=== PATIENT | male | born 1970 | race Caucasian/White ===

== ENCOUNTER 2021-03-21 12:25 | Emergency (ER) | payer OTHER ==
[2021-03-21] MEDS ORDERED: Sodium Chloride 0.9% 10 ML Syringe FLUSH PRN (12:36)
[2021-03-21] MEDS ORDERED: Nitroglycerin 2% Oint 1 GM UD Packet TOP ONE (12:36)
[2021-03-21] MEDS ORDERED: Aspirin 81 MG Tab.Chew PO ONE (12:36)
[2021-03-21] MEDS ORDERED: Sodium Chloride 0.9% 1,000 ML IV ONE (12:36)
--- NOTE | 2021-03-21 12:53 | EDM.PDOC ---
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 Had breakfast, went to work and was teaching when he suddenly had onset of substernal chest pressure 5/10. not sweaty or nauseated with it. No history of CVD, on propanolol for hand tremors. Became concerned and came to the ED. onset of pain 11:20. History of covid in Jun and vaccines in October. No known sick contacts but school is in session. pain at arrival is 2/10 Onset: Today, Sudden Duration: Hour(s):, Improving Location: Reports: Chest Quality: Reports: Ache Severity: Mild Improves with: Reports: None Worsens with: Reports: None Associated Symptoms: Reports: No Other Symptoms - Related Data Allergies Allergy/AdvReac Type Severity Reaction Status Date / Time No Known Allergies Allergy Verified 03/21/21 12:26 Home Meds: Home Meds Propranolol HCl [Inderal Xl] 1 cap PO DAILY 03/21/21 [History] Sertraline HCl [Zoloft] 1.5 tab PO DAILY 03/21/21 [History] Past Medical History Neurological History: Reports: Other (See Below) (hand tremors) Immunologic History: Reports: Other (See Below) (covid 19 in June 2020, vaccine October 2020) Social & Family History - Tobacco Use Tobacco Use Status *Q: Never Tobacco User - Recreational Drug Use Recreational Drug Use: No Drug Use in Last 12 Months: No - Living Situation & Occupation Living situation: Reports: ED ROS GENERAL - Review of Systems Review Of Systems: See Below Constitutional: Reports: No Symptoms. Denies: Fever, Chills, Malaise HEENT: Reports: No Symptoms. Denies: Rhinitis, Sinus Problem, Throat Pain Respiratory: Reports: No Symptoms. Denies: Shortness of Breath, Sputum Cardiovascular: Reports: Chest Pain. Denies: Dyspnea on Exertion, Edema, Lightheadedness, Palpitations Endocrine: Reports: No Symptoms GI/Abdominal: Reports: No Symptoms. Denies: Diarrhea, Nausea, Vomiting : Reports: No Symptoms Musculoskeletal: Reports: No Symptoms. Denies: Neck Pain, Shoulder Pain, Leg Pain, Joint Pain Skin: Reports: No Symptoms Neurological: Reports: No Symptoms. Denies: Confusion, Dizziness, Headache Psychiatric: Reports: No Symptoms. Denies: Agitation, Anxiety Hematologic/Lymphatic: Reports: No Symptoms ED EXAM, GENERAL - Physical Exam Exam: See Below Exam Limited By: No Limitations General Appearance: Alert, WD/WN, No Apparent Distress Eye Exam: Bilateral Eye: EOMI, Normal Inspection, PERRL Ears: Normal External Exam, Normal Canal, Normal TMs Nose: Normal Inspection, Normal Mucosa, No Blood Throat/Mouth: Normal Inspection, Normal Lips, Normal Teeth, Normal Voice Head: Atraumatic Neck: Normal Inspection, Supple, Non-Tender, Full Range of Motion Respiratory/Chest: No Respiratory Distress, Lungs Clear, Normal Breath Sounds, No Accessory Muscle Use, Chest Non-Tender Cardiovascular: Normal Peripheral Pulses, Regular Rate, Rhythm, No Edema, No Murmur GI/Abdominal: Normal Bowel Sounds, Soft, Non-Tender, Other (obese) Extremities: Normal Inspection, Normal Range of Motion, Non-Tender, No Pedal Edema, Normal Capillary Refill Neurological: Alert, Oriented, CN II-XII Intact, Normal Cognition, No Motor/Sensory Deficits Psychiatric: Normal Affect, Normal Mood #1 Interpretation EKG Date: 03/21/21 Time: 12:30 Rhythm: NSR Rate (Beats/Min): 61 [place]: Normal P-Wave: Present QRS: Normal ST-T: Normal QT: Normal Comparison: NA - No Prior EKG Course - Orders/Labs/Meds Orders: Active Orders 24 hr Category Date Time Status Peripheral IV Care [RC] . DIRECTED Care 03/21/21 12:36 Active Chest 2V [CR] Stat Exams 03/21/21 12:33 Taken Sodium Chloride 0.9% [Saline Flush] Med 03/21/21 12:36 Active 10 ml FLUSH ASDIRECTED PRN Peripheral IV Insertion Adult [OM.PC] Routine Oth 03/21/21 12:36 Ordered Medication Orders Sodium Chloride (Sodium Chloride 0.9% 10 Ml Syringe) 10 ml FLUSH ASDIRECTED PRN PRN Reason: Keep Vein Open Labs: Laboratory Tests 03/21/21 03/21/21 03/21/21 Range/Units 12:30 12:30 12:35 WBC 9.0 (4.0-10.2) K/uL RBC 5.54 H (4.33-5.41) M/uL Hgb 16.1 (13.1-16.8) g/dL Hct 48.6 (39.0-49.0) % MCV 87.7 (84.0-98.0) fL MCH 29.1 (28.2-33.3) pg MCHC 33.1 (31.7-36.0) g/dL RDW 13.4 (11.2-14.1) % Plt Count 282 (150-350) K/uL Neut % (Auto) 74.3 (45.0-80.0) % Lymph % (Auto) 16.6 (10.0-50.0) % [place] % (Auto) 7.5 (2.0-14.0) % Eos % (Auto) 1.2 (0.0-5.0) % Baso % (Auto) 0.4 (0.0-2.0) % Neut # (Auto) 6.71 (1.40-7.00) K/uL Lymph # (Auto) 1.50 (0.50-3.50) K/uL [place] # (Auto) 0.68 (0.00-1.00) K/uL Eos # (Auto) 0.11 (0.00-0.50) K/uL Baso # (Auto) 0.04 (0.00-0.20) K/uL D-Dimer, Quantitative < 100 (0-400) ng/mL Sodium 141 (136-145) mmol/L Potassium 4.3 (3.5-5.1) mmol/L Chloride 106 (98-107) mmol/L Carbon Dioxide 28.0 (21.0-32.0) mmol/L Anion Gap 7.0 (7-15) meq/L BUN 22 H (7-18) mg/dL Creatinine 1.13 (0.51-1.17) mg/dL Est Cr Clr Drug Dosing TNP Estimated GFR (MDRD) > 60 mL/min Glucose 112 H (70-99) mg/dL Calcium 8.7 (8.5-10.1) mg/dL Total Bilirubin 0.4 (0.2-1.0) mg/dL AST 10 L (15-37) U/L ALT 27 (12-78) U/L Alkaline Phosphatase 94 (46-116) IU/L Troponin I High Sens 4 (<=76) ng/L Total Protein 6.9 (6.4-8.2) g/dL Albumin 3.6 (3.4-5.0) g/dL SARS-CoV-2 RNA (ERLINDA) (NEGATIVE) 03/21/21 03/21/21 Range/Units 13:00 15:10 WBC (4.0-10.2) K/uL RBC (4.33-5.41) M/uL Hgb (13.1-16.8) g/dL Hct (39.0-49.0) % MCV (84.0-98.0) fL MCH (28.2-33.3) pg MCHC (31.7-36.0) g/dL RDW (11.2-14.1) % Plt Count (150-350) K/uL Neut % (Auto) (45.0-80.0) % Lymph % (Auto) (10.0-50.0) % [place] % (Auto) (2.0-14.0) % Eos % (Auto) (0.0-5.0) % Baso % (Auto) (0.0-2.0) % Neut # (Auto) (1.40-7.00) K/uL Lymph # (Auto) (0.50-3.50) K/uL [place] # (Auto) (0.00-1.00) K/uL Eos # (Auto) (0.00-0.50) K/uL Baso # (Auto) (0.00-0.20) K/uL D-Dimer, Quantitative (0-400) ng/mL Sodium (136-145) mmol/L Potassium (3.5-5.1) mmol/L Chloride (98-107) mmol/L Carbon Dioxide (21.0-32.0) mmol/L Anion Gap (7-15) meq/L BUN (7-18) mg/dL Creatinine (0.51-1.17) mg/dL Est Cr Clr Drug Dosing Estimated GFR (MDRD) mL/min Glucose (70-99) mg/dL Calcium (8.5-10.1) mg/dL Total Bilirubin (0.2-1.0) mg/dL AST (15-37) U/L ALT (12-78) U/L Alkaline Phosphatase (46-116) IU/L Troponin I High Sens 4 (<=76) ng/L Total Protein (6.4-8.2) g/dL Albumin (3.4-5.0) g/dL SARS-CoV-2 RNA (ERLINDA) Negative (NEGATIVE) Meds: Medications Generic Name Dose Route Start Last Admin Trade Name Freq PRN Reason Stop Dose Admin Sodium Chloride 10 ml 03/21/21 12:36 Sodium Chloride 0.9% 10 Ml Syringe FLUSH ASDIRECTED PRN Keep Vein Open Discontinued Medications Generic Name Dose Route Start Last Admin Trade Name Freq PRN Reason Stop Dose Admin Aspirin 324 mg 03/21/21 12:36 03/21/21 12:41 Aspirin 81 Mg Tab.Chew PO 03/21/21 12:37 324 mg ONETIME ONE Administration Sodium Chloride 1,000 mls @ 999 mls/hr 03/21/21 12:36 03/21/21 12:42 Normal Saline IV 03/21/21 13:36 999 mls/hr .BOLUS ONE Administration Nitroglycerin 1 gm 03/21/21 12:36 03/21/21 12:42 Nitroglycerin 2% Oint 1 Gm Ud Packet TOP 03/21/21 12:37 1 gm ONETIME ONE Administration - Radiology Interpretation Free Text/Narrative:: chest x-ray no acute. preliminary read - Re-Assessments/Exams Free Text/Narrative Re-Assessment/Exam: 03/21/21 12:55 pain is improved at arrival IV fluidsm, phototypesetting equipment monitor. EKG, labs, chest x- ray. will give 324 mg aspirin and 1 gram nitro paste on the chest. pain is /03/21/21 13:28 testing thus far is negative. Will repeat the troponin. Awaiting the covid. nitro paste did not really change anything. 03/21/21 15:24 testing was negative. Discussed exercise, follow up with cardiac stress testing. Departure - Departure Time of Disposition: 15:41 Disposition: Home, Self-Care 01 Condition: Good Clinical Impression: Chest pain Instructions: Nonspecific Chest Pain, Adult, [id number], Cardiopulmonary Exercise Stress Test, [id number] Referrals: Elen Giron NP [Primary Care Provider] - Forms: ED Department Discharge, ED Return to Work/School Form Additional Instructions: TEsting today did not reveal an acute coronary problem, infection or blood clot. You are advised to follow up with your PCP and consider stress testing. - My Orders Last 24 Hours: My Active Orders 03/21/21 12:33 Chest 2V [CR] Stat 03/21/21 12:36 Peripheral IV Care [RC] . DIRECTED Sodium Chloride 0.9% [Saline Flush] 10 ml FLUSH ASDIRECTED PRN Peripheral IV Insertion Adult [OM.PC] Routine - Assessment/Plan Last 24 Hours: My Active Orders 03/21/21 12:33 Chest 2V [CR] Stat 03/21/21 12:36 Peripheral IV Care [RC] . DIRECTED Sodium Chloride 0.9% [Saline Flush] 10 ml FLUSH ASDIRECTED PRN Peripheral IV Insertion Adult [OM.PC] Routine
[2021-03-21 13:04] LABS: CHLORIDE,CL 106 mmol/L (98-107); SODIUM,NA 141 mmol/L (136-145)
== END 2021-03-21 15:58 | disposition home or self-care (01) ==
LOC: LL.ED 12:25
DX: R07.2 Precordial pain (principal); Z20.822 Contact with and (suspected) exposure to COVID-19
CPT/HCPCS: 36415; 71046; 80053; 84484; 85025; 85379; 87635; 93005; 99285; A9270; J7030; 93010; 99284; U0002

== ENCOUNTER 2021-05-30 20:15 | Emergency (ER) | payer OTHER ==
[2021-05-30] MEDS ORDERED: methylPREDNISolone Sodium Succinate 125 MG/2 ML SDV ONE (20:17)
[2021-05-30] MEDS ORDERED: diphenhydrAMINE 50 MG/ML SDV ONE (20:17)
[2021-05-30] MEDS ORDERED: Sodium Chloride 0.9% 10 ML Syringe FLUSH PRN (20:26)
--- NOTE | 2021-05-30 21:20 | EDM.PDOC ---
ED HPI GENERAL MEDICAL PROBLEM - General Chief Complaint: Allergic Reaction Stated Complaint: LIP AND EYE SWELLING Time Seen by Provider: 05/30/21 20:28 Source of Information: Reports: Patient History Limitations: Reports: No Limitations - History of Present Illness INITIAL COMMENTS - FREE TEXT/NARRATIVE: patient reports lips feeling funny after he ate a home made smoothie late this afternoon. No new ingredients per patient. He does recall in past that sometimes lips tingle after certain foods. This time he noted upper lip gradually swelling/right eye area puffiness over following hours. No change with Benadryl 50mg. Denies respiratory changes/airway or tongue swelling/hives/other changes. - Related Data Allergies Allergy/AdvReac Type Severity Reaction Status Date / Time No Known Allergies Allergy Verified 03/21/21 12:26 Home Meds: Home Meds Propranolol HCl [Inderal Xl] 1 cap PO DAILY 03/21/21 [History] Sertraline HCl [Zoloft] 2 tab PO DAILY 03/21/21 [History] Cholecalciferol (Vitamin D3) [Vitamin D3] 1 tab PO DAILY 05/30/21 [History] Famotidine [Pepcid] 1 tab PO BID 05/30/21 [History] [place]-3 Fatty Acids/Fish Oil [Fish Oil 1,000 mg Capsule] 1 cap PO DAILY 05/30/21 [History] Sildenafil Citrate [Viagra] 50 tab PO DAILY PRN 05/30/21 [History] Past Medical History Neurological History: Reports: Other (See Below) (hand tremors) Psychiatric History: Reports: Anxiety, Depression Immunologic History: Reports: Other (See Below) (covid 19 in June 2020, vaccine October 2020) Dermatologic History: Reports: Other (See Below) (lip swelling triggered by unknown food(s)) Social & Family History - Caffeine Use Caffeine Use: Reports: Soda - Living Situation & Occupation Living situation: Reports: ED ROS ALLERGIC REACTION - Review of Systems Review Of Systems: Comprehensive ROS is negative, except as noted in HPI. ED EXAM GENERAL NO PERIP PULSE - Physical Exam Exam: See Below Exam Limited By: No Limitations General Appearance: Alert, No Apparent Distress, Obese Eye Exam: Bilateral Eye: EOMI, PERRL, Other (no obvious puffiness of eyelids but patient reports he feels that they are puffier than usual) Ears: Normal External Exam, Normal Canal, Hearing Grossly Normal Nose: Normal Inspection, Normal Mucosa, No Blood Throat/Mouth: Normal Oropharynx, Normal Voice, No Airway Compromise, Other (mild-moderate swelling of upper lip) Head: Atraumatic Neck: Normal Inspection, Supple, Non-Tender, Full Range of Motion Respiratory/Chest: No Respiratory Distress, Lungs Clear, Normal Breath Sounds, No Accessory Muscle Use Cardiovascular: Regular Rate, Rhythm GI/Abdominal: Soft, Non-Tender (Male) Exam: Deferred Rectal (Males) Exam: Deferred Back Exam: No: Muscle Spasm Extremities: Normal Inspection, Normal Range of Motion, No Pedal Edema, Normal Capillary Refill Neurological: Alert, Oriented, Normal Cognition, Normal Gait, No Motor/Sensory Deficits Psychiatric: Normal Affect, Normal Mood Skin Exam: Warm, Intact, Normal Color, No Rash Course - Orders/Labs/Meds Orders: Active Orders 24 hr Category Date Time Status Peripheral IV Care [RC] . DIRECTED Care 05/30/21 20:26 Active Sodium Chloride 0.9% [Saline Flush] Med 05/30/21 20:26 Active 10 ml FLUSH ASDIRECTED PRN Peripheral IV Insertion Adult [OM.PC] Routine Oth 05/30/21 20:26 Ordered Medication Orders Sodium Chloride (Sodium Chloride 0.9% 10 Ml Syringe) 10 ml FLUSH ASDIRECTED PRN PRN Reason: Keep Vein Open Last Admin: 05/30/21 20:28 Dose: 10 ml Documented by: KATE Meds: Medications Generic Name Dose Route Start Last Admin Trade Name Freq PRN Reason Stop Dose Admin Sodium Chloride 10 ml 05/30/21 20:26 05/30/21 20:28 Sodium Chloride 0.9% 10 Ml Syringe FLUSH 10 ml ASDIRECTED PRN Administration Keep Vein Open Discontinued Medications Generic Name Dose Route Start Last Admin Trade Name Freq PRN Reason Stop Dose Admin Diphenhydramine HCl Confirm 05/30/21 20:17 05/30/21 20:20 Diphenhydramine 50 Mg/Ml Sdv Administered 05/30/21 20:18 50 mg Dose Administration 50 mg .ROUTE .STK-MED ONE Methylprednisolone Sodium Succinate Confirm 05/30/21 20:17 05/30/21 20:19 Methylprednisolone Sodium Succinate 125 Mg/2 Ml Sdv Administered 05/30/21 20:18 125 mg Dose Administration 125 mg .ROUTE .STK-MED ONE - Re-Assessments/Exams Free Text/Narrative Re-Assessment/Exam: 05/30/21 21:19 Vital signs stable. No respiratory distress or signs of anaphylaxis. IV access obtained and patient received Benadryl and Solu-Medrol. Observed for one hour. 05/30/21 21:29 Patient feeling better. Lip much improved. No obvious eyelid edema. OK to be discharged home. Precautions reviewed. To return to ER if any worsening symptoms develop. Recommend working with primary provider to help ID what food might have triggered the reaction. Departure - Departure Time of Disposition: 21:25 Disposition: Home, Self-Care 01 Condition: Good Clinical Impression: Allergic reaction to food Qualifiers: Encounter type: initial encounter Qualified Code(s): T78.1XXA - Other adverse food reactions, not elsewhere classified, initial encounter - Discharge Information *PRESCRIPTION DRUG MONITORING PROGRAM REVIEWED*: Not Applicable *COPY OF PRESCRIPTION DRUG MONITORING REPORT IN PATIENT JUANA: Not Applicable Instructions: Angioedema Referrals: Elen Giron NP [Primary Care Provider] - Forms: ED Department Discharge Additional Instructions: OK to take Benadryl 1-2 tabs every 6 hours as needed for continued swelling/symptoms. Return to ER if if you have sudden worsening problems, especially airway changes/swelling of throat and tongue. You will need to do some careful sleuthing as to identifying the culprit that set off the swelling. Remember, if you develop a worse reaction such as described above (anaphylaxis) you will need to carry an Epi-Pen - My Orders Last 24 Hours: My Active Orders 05/30/21 20:26 Peripheral IV Care [RC] . DIRECTED Sodium Chloride 0.9% [Saline Flush] 10 ml FLUSH ASDIRECTED PRN Peripheral IV Insertion Adult [OM.PC] Routine - Assessment/Plan Last 24 Hours: My Active Orders 05/30/21 20:26 Peripheral IV Care [RC] . DIRECTED Sodium Chloride 0.9% [Saline Flush] 10 ml FLUSH ASDIRECTED PRN Peripheral IV Insertion Adult [OM.PC] Routine
== END 2021-05-30 21:37 | disposition home or self-care (01) ==
LOC: LL.ED 20:15
DX: T78.1XXA Other adverse food reactions, not elsewhere classified, initial encounter (principal)
CPT/HCPCS: 96374; 96375; 99283; 99283-25; J1200; J2930

== ENCOUNTER 2022-02-10 17:03 | Emergency (ER) | payer OTHER ==
[2022-02-10] MEDS ORDERED: Bacitracin/Neomycin/Polymyxin B Oint 0.9 GM U/D Packet TOP ONE (17:28)
[2022-02-10] MEDS ORDERED: Diphtheria,Pertussis(Acell),Tetanus Vaccine 0.5 ML Syringe IM ONE (17:55)
== END 2022-02-10 18:11 | disposition home or self-care (01) ==
LOC: LL.ED 17:03
DX: S60.221A Contusion of right hand, initial encounter (principal); S00.81XA Abrasion of other part of head, initial encounter; S80.211A Abrasion, right knee, initial encounter; I10 Essential (primary) hypertension; K21.9 Gastro-esophageal reflux disease without esophagitis; Z23 Encounter for immunization; Z86.16 Personal history of COVID-19; W18.40XA Slipping, tripping and stumbling without falling, unspecified, initial encounter; Y92.480 Sidewalk as the place of occurrence of the external cause
CPT/HCPCS: 73130-RT; 90471; 90715; 99283; 99283-25

== ENCOUNTER 2022-03-02 16:11 | Emergency (ER) | payer OTHER ==
[2022-03-02 17:07] LABS: ANION GAP 8.6 meq/L (7-15); CHLORIDE,CL 107 mmol/L (98-107); ESTIMATED GFR 95 mL/min (>=60); SODIUM,NA 140 mmol/L (136-145)
[2022-03-02 18:37] LABS: CORONAVIRUS COVID-19 NAA NEGATIVE (NEGATIVE); RESPIRATORY SYNCYTIAL VIR NAA NEGATIVE (NEGATIVE)
[2022-03-02] MEDS ORDERED: Iopamidol 612 MG/ML 100 ML Bottle IVPUSH ONE (19:32)
[2022-03-02] MEDS ORDERED: Sodium Chloride 0.9% 1,000 ML IV ONE ×2 (21:02→22:18)
[2022-03-02] MEDS ORDERED: Loperamide 2 MG Tab PO ONE (21:58)
[2022-03-02] MEDS ORDERED: Ketorolac 30 MG/ML SDV IVPUSH ONE (22:33)
== END 2022-03-02 23:48 | disposition home or self-care (01) ==
LOC: LL.ED 16:11
DX: K52.9 Noninfective gastroenteritis and colitis, unspecified (principal); E86.0 Dehydration; I10 Essential (primary) hypertension; K21.9 Gastro-esophageal reflux disease without esophagitis; E66.9 Obesity, unspecified; Z68.30 Body mass index [BMI] 30.0-30.9, adult; Z86.16 Personal history of COVID-19; Z20.822 Contact with and (suspected) exposure to COVID-19
CPT/HCPCS: 0241U; 36415; 74019; 74177; 80053; 81001; 83605; 83735; 85025; 96361; 96374; 99284; 99284-25; A9270-GY; J1885; J7030; Q9967

== ENCOUNTER 2022-09-03 20:46 | Emergency (ER) | payer OTHER ==
[2022-09-03] MEDS ORDERED: fentaNYL 50 MCG/ML SDV IVPUSH ONE ×2 (21:08→23:03)
[2022-09-03] MEDS ORDERED: Sodium Chloride 0.9% 1,000 ML IV ONE (21:09)
[2022-09-03] MEDS ORDERED: Ondansetron 4 MG/2 ML SDV IVPUSH PRN (21:09)
[2022-09-03] MEDS ORDERED: Sodium Chloride 0.9% 10 ML Syringe FLUSH PRN (21:09)
[2022-09-03 21:34] LABS: ANION GAP 16.6 meq/L (7-15)
[2022-09-03] MEDS ORDERED: Iopamidol 612 MG/ML 100 ML Bottle IVPUSH STA (21:52)
[2022-09-03] MEDS ORDERED: Take Home: Acetaminophen/HYDROcodone 325-10 MG, 5 Tab Pack PO ONE (23:03)
[2022-09-03] MEDS ORDERED: Tamsulosin 0.4 MG Cap.ER PO ONE (23:05)
== END 2022-09-03 23:40 | disposition home or self-care (01) ==
LOC: LL.ED 20:46
DX: N13.2 Hydronephrosis with renal and ureteral calculous obstruction (principal); I10 Essential (primary) hypertension; K21.9 Gastro-esophageal reflux disease without esophagitis; E66.9 Obesity, unspecified; Z68.42 Body mass index [BMI] 45.0-49.9, adult; Z79.899 Other long term (current) drug therapy
CPT/HCPCS: 36415; 74177; 80053; 81001; 83605; 85025; 96361; 96374; 96375; 96376; 99284; 99284-25; A9270-GY; J2405; J3010; J7030; Q9967